=== PATIENT | female | born 1985 | race Caucasian/White ===

== ENCOUNTER 2018-05-26 17:21 | Emergency (ER) | payer OTHER ==
[~2018-05-26] VITALS: Ht 165.1 cm; Wt 100.9 kg
[~2018-05-26 17:21] MED LIST: AMOX1POW6; IBUPROFEN PRN PAIN
[2018-05-26 18:21] VITALS: BP 127/91
--- NOTE | 2018-05-26 18:26 | NUR ---
PT AMBULATES BACK TO THE LOBBY
--- NOTE | 2018-05-26 19:10 | NUR ---
ASSUMED CARE OF PT FROM MANOHAR CHAPARRO
--- NOTE | 2018-05-26 19:33 | NUR ---
PT TO ED WITH C/O DOG BITE TO RT ARM X 2 DAYS AGO. NO ACTIVE BLEEDING NOTED. ANIMAL BITE REPORT FILED. ACTIVE ROM NOTED TO RT ARM. PT PLACED INTO BED, PENDING MD KIM.
[2018-05-26] MEDS ORDERED: NEOMYCIN/POLYMYXIN/BACITRACIN 0.9 GM/1 PKT TP ONE (20:10)
--- NOTE | 2018-05-26 20:22 | NUR ---
PROVIDED THE PT WITH WOUND CARE ON THE RIGHT FOREARM. PLACE NEOSPORIN ON WOUNDS, NON ADHERANT DRESSING AND WRAPPED IT WITH A ROLL OF GAUZE.
[2018-05-26 20:24] VITALS: BP 119/85
--- NOTE | 2018-05-26 20:24 | NUR ---
Patient discharged with v/s stable. Written and verbal after care instructions given and explained. Patient verbalized understanding. Ambulatory with steady gait. All questions addressed prior to discharge. Advised to follow up with PMD.
== END 2018-05-26 20:24 | disposition home or self-care (01) ==
LOC: MED 17:21
DX: S51.051A Open bite, right elbow, initial encounter (principal); J45.909 Unspecified asthma, uncomplicated; Z79.899 Other long term (current) drug therapy; Z88.5 Allergy status to narcotic agent; W54.0XXA Bitten by dog, initial encounter; Y93.89 Activity, other specified; Y92.89 Other specified places as the place of occurrence of the external cause; Y99.8 Other external cause status
CPT/HCPCS: 99283

== ENCOUNTER 2022-07-11 15:46 | Observation (INO) | payer OTHER ==
[~2022-07-11] VITALS: Ht 160 cm; Wt 113.4 kg
[2022-07-11] MEDS ORDERED: PNV91TAB8 PO (16:50)
[2022-07-11] MEDS ORDERED: ALBUTEROL SULFATE/IPRATROPIU 3 ML SOL IH SCH (17:45)
[2022-07-11 18:14] LABS: BASOPHILS # (AUTO) 0.1 K/uL (0.00-0.22); BASOPHILS % (AUTO) 0.8 % (0.0-2.0); EOSINOPHILS # (AUTO) 0.3 K/uL (0-0.4); EOSINOPHILS % (AUTO) 2.3 % (0.0-4.0); HEMATOCRIT 38.3 % (36-48); HEMOGLOBIN 12.7 g/dL (12.0-16.0); LYMPHOCYTES # (AUTO) 2.1 K/uL (2.5-16.5); LYMPHOCYTES % (AUTO) 16.6 % (20.5-51.1); MEAN CORPUSCULAR HEMOGLOBIN 30 pg (27-31); MEAN CORPUSCULAR HGB CONC 33 g/dL (33-37); MEAN CORPUSCULAR VOLUME 89.8 fL (80-94); MONOCYTES # (AUTO) 0.6 K/uL (0.8-1.0); MONOCYTES % (AUTO) 4.4 % (1.7-9.3); NEUTROPHILS # (AUTO) 9.8 K/uL (1.8-7.7); NEUTROPHILS % (AUTO) 75.9 % (42.2-75.2); PLATELET COUNT (AUTO) 268 K/uL (140-450); RED BLOOD CELL COUNT(AUTO) 4.27 MIL/uL (4.20-5.40); RED CELL DISTRIBUTION WIDTH 13.8 % (11.6-13.7); WHITE BLOOD COUNT (AUTO) 12.9 K/uL (4.8-10.8)
[2022-07-11 18:23] LABS: APPEARANCE,URINE CLEAR (CLEAR); BILIRUBIN,URINE NEGATIVE (NEGATIVE); BLOOD, URINE NEGATIVE (NEGATIVE); COLOR,URINE YELLOW (YELLOW); LEUKOCYTE ESTERASE ,URINE NEGATIVE (NEGATIVE); NITRITE, URINE NEGATIVE (NEGATIVE); UGLUCOSE NEGATIVE (NEGATIVE)
[2022-07-11 18:36] LABS: PROTHROMBIN TIME 9.3 secs (10.8-13.4)
[2022-07-11 18:38] LABS: ALBUMIN 2.6 g/dL (3.4-5.0); ANION GAP 15.8 (8-16); CARBON DIOXIDE 21.1 mmol/L (21-32); POTASSIUM 3.9 mmol/L (3.5-5.1); TOTAL BILIRUBIN 0.2 mg/dL (0.0-1.0)
[2022-07-11 18:46] LABS: CREATININE 0.7 mg/dL (0.6-1.3); URINE TOTAL PROTEIN 2.4 mg/dL (0-12)
[2022-07-11 19:06] VITALS: BP 140/71
[2022-07-11] MEDS: ALBUTEROL SULFATE/IPRATROPIU 3 ML SOL IH PRN (20:43)
== END 2022-07-11 21:15 | disposition home or self-care (01) ==
LOC: MLD 15:46
PROVIDERS: ADMIT Obstetrics & Gynecology; ATTEND Obstetrics & Gynecology
DX: O26.893 Other specified pregnancy related conditions, third trimester (principal); R20.0 Anesthesia of skin; Z20.822 Contact with and (suspected) exposure to COVID-19; R20.2 Paresthesia of skin; R03.0 Elevated blood-pressure reading, without diagnosis of hypertension; O99.891 Other specified diseases and conditions complicating pregnancy; M79.642 Pain in left hand; M79.641 Pain in right hand; Z3A.31 31 weeks gestation of pregnancy
CPT/HCPCS: 36415; 80053; 81003; 82570; 84550; 85025; 85384; 85610; 85730; 86886; 86900; 86901; 87426; G0378; 59025; 94640

== ENCOUNTER 2022-08-14 12:41 | Inpatient (IN) | payer OTHER ==
[~2022-08-14] VITALS: Ht 162.6 cm; Wt 116.1 kg
[~2022-08-14 12:41] MED LIST changes: -AMOX1POW6; -IBUPROFEN PRN PAIN; +PNV91TAB8 PO
[2022-08-14] MEDS ORDERED: NIFEdipine 10 MG CAPLF PO SCH (13:35)
[2022-08-14] MEDS ORDERED: VITD400 PO (14:25)
[2022-08-14 14:43] LABS: BASOPHILS # (AUTO) 0.1 K/uL (0.00-0.22); BASOPHILS % (AUTO) 0.5 % (0.0-2.0); EOSINOPHILS # (AUTO) 0.3 K/uL (0-0.4); EOSINOPHILS % (AUTO) 2.4 % (0.0-4.0); HEMATOCRIT 37.3 % (36-48); HEMOGLOBIN 12.3 g/dL (12.0-16.0); LYMPHOCYTES % (AUTO) 16.8 % (20.5-51.1); MEAN CORPUSCULAR HEMOGLOBIN 29 pg (27-31); MEAN CORPUSCULAR HGB CONC 33 g/dL (33-37); MEAN CORPUSCULAR VOLUME 87.6 fL (80-94); MONOCYTES # (AUTO) 0.8 K/uL (0.8-1.0); MONOCYTES % (AUTO) 6.6 % (1.7-9.3); NEUTROPHILS # (AUTO) 8.8 K/uL (1.8-7.7); NEUTROPHILS % (AUTO) 73.7 % (42.2-75.2); PLATELET COUNT (AUTO) 291 K/uL (140-450); RED BLOOD CELL COUNT(AUTO) 4.25 MIL/uL (4.20-5.40); RED CELL DISTRIBUTION WIDTH 13.4 % (11.6-13.7); WHITE BLOOD COUNT (AUTO) 11.9 K/uL (4.8-10.8)
[2022-08-14 14:50] LABS: APPEARANCE,URINE CLEAR (CLEAR); BILIRUBIN,URINE NEGATIVE (NEGATIVE); BLOOD, URINE NEGATIVE (NEGATIVE); COLOR,URINE YELLOW (YELLOW); LEUKOCYTE ESTERASE ,URINE NEGATIVE (NEGATIVE); NITRITE, URINE NEGATIVE (NEGATIVE); UGLUCOSE NEGATIVE (NEGATIVE)
[2022-08-14 14:58] LABS: ALBUMIN 2.3 g/dL (3.4-5.0); ANION GAP 12.4 (8-16); CARBON DIOXIDE 23.5 mmol/L (21-32); CREATININE 0.6 mg/dL (0.6-1.3); POTASSIUM 3.9 mmol/L (3.5-5.1); TOTAL BILIRUBIN 0.2 mg/dL (0.0-1.0)
[2022-08-14] MEDS ORDERED: APAP/BUTAL/CAFF 325/50/40 MG 1 TAB PO SCH ×2 (15:57→17:57)
--- NOTE | 2022-08-14 17:07 | NUR ---
PATIENT HAS BEEN SCREENED AND CATEGORIZED LOW NUTRITION RISK. PATIENT WILL BE SEEN WITHIN 7 DAYS OF ADMISSION. 08/21/22 REVIEWED [address]
[2022-08-14 17:53] LABS: URINE TOTAL PROTEIN 5.4 mg/dL (0-12)
[2022-08-14] MEDS: LACTATED RINGERS 1,000 ML IV SCH ×2 (18:03→19:09)
[2022-08-14] MEDS ORDERED: SUMAtriptan succinate 25 MG TAB PO SCH (18:10)
[2022-08-14] MEDS ORDERED: oxyCODONE/APAP 5/325 MG 1 TAB TAB PO PRN (21:05)
[2022-08-14] MEDS ORDERED: oxyCODONE/APAP 5/325 MG 1 TAB TAB ONE (21:08)
[2022-08-15] MEDS: LACTATED RINGERS 1,000 ML IV SCH ×3 (02:44→20:36)
[2022-08-15] MEDS ORDERED: APAP/BUTAL/CAFF 325/50/40 MG 1 TAB PO SCH (08:45)
[2022-08-15] MEDS ORDERED: SUMAtriptan succinate 25 MG TAB PO SCH (08:46)
[2022-08-15] MEDS ORDERED: MORPHINE SULFATE 2 MG/ML SYR IVP PRN (08:55)
[2022-08-15] MEDS ORDERED: MORPHINE SULFATE 4 MG/ML SYR ONE ×2 (09:37→23:57)
[2022-08-15] MEDS ORDERED: ACETAMINOPHEN 325 MG TAB ONE (12:09)
[2022-08-15] MEDS: ACETAMINOPHEN 325 MG TAB PO PRN (12:15)
[2022-08-15] MEDS ORDERED: oxyCODONE/APAP 5/325 MG 1 TAB TAB PO SCH (15:30)
[2022-08-15] MEDS: APAP/BUTAL/CAFF 325/50/40 MG 1 TAB PO SCH (20:18)
[2022-08-15] MEDS: SUMAtriptan succinate 50 MG TAB PO SCH ×2 (20:23→22:31)
[2022-08-15] MEDS ORDERED: PANTOPRAZOLE 40 MG TABEC PO ONE (22:33)
[2022-08-15] MEDS: PANTOPRAZOLE 40 MG TABEC PO SCH (22:54)
[2022-08-16] MEDS: APAP/BUTAL/CAFF 325/50/40 MG 1 TAB PO SCH ×4 (00:01→16:20)
[2022-08-16] MEDS: MORPHINE SULFATE 2 MG/ML SYR IVP PRN ×2 (00:05→08:17)
[2022-08-16] MEDS: LACTATED RINGERS 1,000 ML IV SCH ×2 (04:07→12:23)
[2022-08-16] MEDS ORDERED: MORPHINE SULFATE 4 MG/ML SYR ONE (08:13)
[2022-08-16] MEDS ORDERED: PANTOPRAZOLE 40 MG TABEC PO SCH (09:00)
[2022-08-16] MEDS: PANTOPRAZOLE 40 MG TABEC PO SCH (10:53)
[2022-08-16] MEDS: SUMAtriptan succinate 50 MG TAB PO SCH (10:53)
[2022-08-16] MEDS: ACETAMINOPHEN 325 MG TAB PO PRN (18:36)
== END 2022-08-16 19:20 | disposition home or self-care (01) | DRG 566 ==
LOC: MLD 12:41 → MFCC 21:24 → OBSVTOIN 08-15 10:29
PROVIDERS: ADMIT Obstetrics & Gynecology; ATTEND Obstetrics & Gynecology
DX: O26.893 Other specified pregnancy related conditions, third trimester (principal); E44.0 Moderate protein-calorie malnutrition; G43.909 Migraine, unspecified, not intractable, without status migrainosus; E88.09 Other disorders of plasma-protein metabolism, not elsewhere classified; O99.513 Diseases of the respiratory system complicating pregnancy, third trimester; O25.13 Malnutrition in pregnancy, third trimester; O99.283 Endocrine, nutritional and metabolic diseases complicating pregnancy, third trimester; J45.909 Unspecified asthma, uncomplicated; Z20.822 Contact with and (suspected) exposure to COVID-19; Z88.5 Allergy status to narcotic agent; Z79.899 Other long term (current) drug therapy; Z90.710 Acquired absence of both cervix and uterus; Z3A.33 33 weeks gestation of pregnancy
CPT/HCPCS: G0378 ×12; 36415; 76805; 80053; 81003; 82570; 85025; J2270; Q0092; Q0163

== ENCOUNTER 2022-08-27 17:36 | Inpatient (IN) | payer OTHER ==
[~2022-08-27] VITALS: Ht 162.6 cm; Wt 113.4 kg
[~2022-08-27 17:36] MED LIST changes: +VITD400 PO
[2022-08-27 18:14] VITALS: BP 131/78
[2022-08-27 18:28] LABS: BASOPHILS # (AUTO) 0.1 K/uL (0.00-0.22); BASOPHILS % (AUTO) 0.6 % (0.0-2.0); EOSINOPHILS # (AUTO) 0.3 K/uL (0-0.4); EOSINOPHILS % (AUTO) 2.3 % (0.0-4.0); HEMATOCRIT 36.8 % (36-48); HEMOGLOBIN 12.4 g/dL (12.0-16.0); LYMPHOCYTES # (AUTO) 1.9 K/uL (2.5-16.5); LYMPHOCYTES % (AUTO) 16.5 % (20.5-51.1); MEAN CORPUSCULAR HEMOGLOBIN 29 pg (27-31); MEAN CORPUSCULAR HGB CONC 34 g/dL (33-37); MEAN CORPUSCULAR VOLUME 86.5 fL (80-94); MONOCYTES # (AUTO) 0.7 K/uL (0.8-1.0); MONOCYTES % (AUTO) 5.8 % (1.7-9.3); NEUTROPHILS # (AUTO) 8.5 K/uL (1.8-7.7); NEUTROPHILS % (AUTO) 74.8 % (42.2-75.2); PLATELET COUNT (AUTO) 323 K/uL (140-450); RED BLOOD CELL COUNT(AUTO) 4.25 MIL/uL (4.20-5.40); RED CELL DISTRIBUTION WIDTH 13.4 % (11.6-13.7); WHITE BLOOD COUNT (AUTO) 11.3 K/uL (4.8-10.8)
[2022-08-27] MEDS ORDERED: VITD400 PO (18:39)
[2022-08-27] MEDS ORDERED: PRETAB PO (18:39)
[2022-08-27 18:42] LABS: ALBUMIN 2.3 g/dL (3.4-5.0); ANION GAP 13.5 (8-16); CARBON DIOXIDE 22.1 mmol/L (21-32); CREATININE 0.7 mg/dL (0.6-1.3); POTASSIUM 3.6 mmol/L (3.5-5.1); TOTAL BILIRUBIN 0.2 mg/dL (0.0-1.0)
[2022-08-27 18:44] LABS: APPEARANCE,URINE CLEAR (CLEAR); BILIRUBIN,URINE 1+ (NEGATIVE); BLOOD, URINE NEGATIVE (NEGATIVE); COLOR,URINE YELLOW (YELLOW); LEUKOCYTE ESTERASE ,URINE NEGATIVE (NEGATIVE); NITRITE, URINE NEGATIVE (NEGATIVE); UGLUCOSE NEGATIVE (NEGATIVE)
[2022-08-27 19:02] LABS: PROTHROMBIN TIME 8.4 secs (10.8-13.4)
[2022-08-28] MEDS: LACTATED RINGERS 1,000 ML IV SCH ×4 (03:40→22:38)
[2022-08-28] MEDS ORDERED: MORPHINE SULFATE 5 MG/ML VIAL IVP PRN (05:25)
[2022-08-28] MEDS ORDERED: MORPHINE SULFATE 10 MG/ML VIAL ONE (06:31)
--- NOTE | 2022-08-28 09:16 | NUR ---
PATIENT HAS BEEN SCREENED AND CATEGORIZED LOW NUTRITION RISK. PATIENT WILL BE SEEN WITHIN 7 DAYS OF ADMISSION. 09/03/[address]
[2022-08-28] MEDS: MORPHINE SULFATE 10 MG/ML VIAL IVP PRN ×3 (09:48→21:23)
[2022-08-28] MEDS ORDERED: CITRIC ACID/SODIUM CITRATE 30 ML UDC PO SCH (12:05)
[2022-08-28] MEDS ORDERED: ceFAZolin 2,000 MG VIAL ONE (18:04)
[2022-08-28 21:23] VITALS: BP 142/84
[2022-08-28] MEDS ORDERED: fentaNYL citrate 0.05 MG/ML VIAL ONE (22:49)
[2022-08-28] MEDS ORDERED: MORPHINE PRES FREE 5 MG/10 ML AMP IV ONE (22:49)
[2022-08-28] MEDS ORDERED: METHYLERGONOVINE 0.2 MG/ML AMP ONE (22:50)
[2022-08-28] MEDS ORDERED: ePHEDrine 50 MG/ML VIAL ONE (23:00)
[2022-08-29] MEDS ORDERED: ONDANSETRON 4 MG/2 ML VIAL IVP PRN (00:40)
[2022-08-29] MEDS ORDERED: diphenhydrAMINE 50 MG/ML VIAL IVP PRN (00:40)
[2022-08-29] MEDS ORDERED: NALOXONE 0.4 MG/ML VIAL IVP PRN ×2 (00:40)
[2022-08-29] MEDS ORDERED: KETOROLAC 60 MG/2 ML VIAL IM PRN (00:40)
[2022-08-29] MEDS ORDERED: diphenhydrAMINE 50 MG/ML VIAL ONE (01:08)
[2022-08-29] MEDS: diphenhydrAMINE 50 MG/ML VIAL IVP PRN ×2 (01:10→04:05)
[2022-08-29] MEDS: OXYTOCIN 20 UNITS/LR PREMIX 1,000 ML IV ONE ×2 (01:12→01:30)
[2022-08-29] MEDS ORDERED: METHYLERGONOVINE 0.2 MG/ML AMP IM PRN (01:25)
[2022-08-29] MEDS ORDERED: MEASLES, MUMPS, AND RUBELLA 1 VIAL SQVAC ONE (01:25)
[2022-08-29] MEDS ORDERED: ACETAMINOPHEN 100 ML IV PRN (11:09)
[2022-08-29] MEDS ORDERED: HYDROmorphone 1 MG/ML AMP IVP PRN (11:10)
[2022-08-29] MEDS: OXYTOCIN 20 UNITS in LACTATED RINGERS 1,000 ML IV SCH ×2 (11:35→20:11)
[2022-08-29] MEDS: oxyCODONE/APAP 5/325 MG 1 TAB TAB PO PRN (18:48)
[2022-08-29] MEDS ORDERED: IBUPROFEN 800 MG TAB PO PRN (19:40)
[2022-08-29] MEDS ORDERED: KETOROLAC 30 MG/ML VIAL IM SCH (20:00)
[2022-08-29] MEDS ORDERED: OXYTOCIN 20 UNITS/LR PREMIX 1,000 ML IV ONE (20:00)
[2022-08-29] MEDS: oxyCODONE 5 MG TAB PO PRN ×2 (20:30→23:50)
[2022-08-29] MEDS: KETOROLAC 30 MG/ML VIAL IVP SCH (21:37)
[2022-08-29] MEDS ORDERED: CAMERA MC ONE (23:12)
[2022-08-30] MEDS: KETOROLAC 30 MG/ML VIAL IVP SCH ×2 (02:50→09:05)
[2022-08-30] MEDS: oxyCODONE/APAP 5/325 MG 1 TAB TAB PO PRN ×2 (03:06→15:53)
[2022-08-30 05:15] LABS: BASOPHILS % (AUTO) 0.1 % (0.0-2.0); EOSINOPHILS # (AUTO) 0.2 K/uL (0-0.4); EOSINOPHILS % (AUTO) 1.6 % (0.0-4.0); HEMATOCRIT 31.9 % (36-48); HEMOGLOBIN 10.5 g/dL (12.0-16.0); LYMPHOCYTES # (AUTO) 1.5 K/uL (2.5-16.5); LYMPHOCYTES % (AUTO) 11.4 % (20.5-51.1); MEAN CORPUSCULAR HEMOGLOBIN 29 pg (27-31); MEAN CORPUSCULAR HGB CONC 33 g/dL (33-37); MEAN CORPUSCULAR VOLUME 87.5 fL (80-94); MONOCYTES # (AUTO) 0.4 K/uL (0.8-1.0); MONOCYTES % (AUTO) 2.8 % (1.7-9.3); NEUTROPHILS # (AUTO) 11.2 K/uL (1.8-7.7); NEUTROPHILS % (AUTO) 84.1 % (42.2-75.2); PLATELET COUNT (AUTO) 277 K/uL (140-450); RED BLOOD CELL COUNT(AUTO) 3.64 MIL/uL (4.20-5.40); RED CELL DISTRIBUTION WIDTH 13.6 % (11.6-13.7); WHITE BLOOD COUNT (AUTO) 13.3 K/uL (4.8-10.8)
[2022-08-30] MEDS: oxyCODONE 5 MG TAB PO PRN ×2 (07:58→20:49)
[2022-08-30] MEDS: bisacodyL 5 MG TABEC PO PRN (09:06)
[2022-08-30] MEDS: SIMETHICONE 80 MG TAB.CHEW PO PRN ×2 (09:06→15:53)
[2022-08-30] MEDS: IBUPROFEN 800 MG TAB PO PRN (21:56)
[2022-08-30] MEDS ORDERED: CAMERA MC ONE (23:02)
[2022-08-31] MEDS: oxyCODONE/APAP 5/325 MG 1 TAB TAB PO PRN ×2 (01:07→12:06)
[2022-08-31] MEDS: SIMETHICONE 80 MG TAB.CHEW PO PRN (06:17)
[2022-08-31] MEDS: bisacodyL 5 MG TABEC PO PRN (08:48)
[2022-08-31] MEDS: IBUPROFEN 800 MG TAB PO PRN (08:49)
== END 2022-08-31 14:12 | disposition home or self-care (01) | DRG 540 ==
LOC: MLD 17:36 → OBSVTOIN 22:30 → MFCC 08-29 01:33
PROVIDERS: ADMIT Obstetrics & Gynecology; ATTEND Obstetrics & Gynecology
PROC: 0UB90ZZ Excision of Uterus, Open Approach (ICD-10-PCS; 2022-08-28)
PROC: 0DNW0ZZ Release Peritoneum, Open Approach (ICD-10-PCS; 2022-08-28)
PROC: 10D00Z1 Extraction of Products of Conception, Low, Open Approach (ICD-10-PCS; principal; 2022-08-28 22:30)
DX: O13.4 Gestational [pregnancy-induced] hypertension without significant proteinuria, complicating childbirth (principal); O14.14 Severe pre-eclampsia complicating childbirth; E87.1 Hypo-osmolality and hyponatremia; R71.0 Precipitous drop in hematocrit; O34.13 Maternal care for benign tumor of corpus uteri, third trimester; O99.284 Endocrine, nutritional and metabolic diseases complicating childbirth; O34.211 Maternal care for low transverse scar from previous cesarean delivery; Z20.822 Contact with and (suspected) exposure to COVID-19; D25.9 Leiomyoma of uterus, unspecified; Z37.0 Single live birth; Z3A.37 37 weeks gestation of pregnancy; K66.0 Peritoneal adhesions (postprocedural) (postinfection); R51.9 Headache, unspecified; R80.9 Proteinuria, unspecified; O75.89 Other specified complications of labor and delivery
CPT/HCPCS: 36415; 51702; 76805; 76819; 80053; 81003; 82570; 84550; 85025; 85384; 85610; 85730; 86592; 86886; 86900; 86901; 88305; 90715; 93005; J1170; J1200; J1885; J2210; J2270; J2590; J3010; J7120; Q0092